=== PATIENT | female | born 1965 | race Caucasian/White ===

== ENCOUNTER 2017-08-31 11:44 | Emergency (ER) | payer BC, SELFPAY ==
[2017-08-31 11:45] VITALS: BP 195/111; PULSE 86; RESP 16; TEMP 36.8; O2SAT 99; BMI 25.1
[2017-08-31 11:47] VITALS: BMI 25.1
[2017-08-31 12:02] LABS: Basophils % 0.5 % (0.1-2.0); Eosinophils # 0.2 K/mm3 (0.0-0.4); Eosinophils % 2.2 % (0.1-12.0); Hematocrit 48.8 % (37.0-47.0); Hemoglobin 16.4 g/dL (12.2-16.2); Lymphocytes # 1.8 K/mm3 (0.7-4.5); Lymphocytes % 24.3 K/mm3 (10-50); Mean Corpuscular HGB Conc 33.6 g/dL (31.8-35.4); Mean Corpuscular Hemoglobin 34.1 pg (27.0-31.2); Mean Corpuscular Volume 101.5 fl (81-99); Mean Platelet Volume 7.8 fl (7.4-10.4); Monocytes # 0.4 K/mm3 (0.1-1.0); Monocytes % 5.8 % (1.7-9.3); Neutrophils # 4.9 K/mm3 (1.8-7.8); Neutrophils % 67.3 % (37.0-80.0); Platelet Count 238 K/mm3 (142-424); Red Blood Count 4.81 M/mm3 (4.20-5.40); White Blood Count 7.3 K/mm3 (4.8-10.8)
--- NOTE | 2017-08-31 12:07 | HMH.EDGENADL ---
ED Disposition Clinical Impression: Hypertension Qualifiers: Hypertension type: essential hypertension Qualified Code(s): I10 - Essential (primary) hypertension Disposition: Home, Self-Care Condition on Discharge: Good Instructions: DI for Anxiety -- Adult, High Blood Pressure Additional Instructions: Increase metoprolol to 25 mg twice a day. Call your primary care provider today to schedule follow-up appointment for next week to have blood pressure rechecked. Also have further evaluation for abnormal EKG. Referrals: Em Laureano [Primary Care Provider] - Forms: Work/School Release - Critical Care Critical Care Time: No Attestation: On , the high probability of a clinically significant, sudden or life threatening deterioration of the following system(s) required my full and direct attention, intervention and personal management. The time I documented below is in addition to time spent performing reported procedures but includes the following listed in this critical care notation. Medical Decision Making Vital Signs: 08/31/17 11:45 08/31/17 12:35 Temperature 98.2 F Temperature Source Oral Pulse Rate [Right Brachial] 86 Respiratory Rate 16 Blood Pressure 173/100 Blood Pressure [Right Arm] 195/111 Blood Pressure Mean [Right Arm] 139 Blood Pressure Source [Right Arm] Automatic Cuff Blood Pressure Position [Right Arm] Sitting 02 Sat by Pulse Oximetry 99 Oxygen Delivery Method Room Air - Lab Data Lab Results 08/31/17 11:51: WBC 7.3, RBC 4.81, Hgb 16.4 H, Hct 48.8 H, MCV 101.5 H, MCH 34.1 H, MCHC 33.6, RDW 13.0, Plt Count 238, MPV 7.8, Neut % (Auto) 67.3, Lymph % (Auto) 24.3, [place] % (Auto) 5.8, Eos % (Auto) 2.2, Baso % (Auto) 0.5, Neut # (Auto) 4.9, Lymph # (Auto) 1.8, [place] # (Auto) 0.4, Eos # (Auto) 0.2, Baso # (Auto) 0.0 08/31/17 11:51: Sodium 139, Potassium 4.0, Chloride 100, Carbon Dioxide 27, Anion Gap 16.0 H, BUN 14, Creatinine 0.85, Estimated Creat Clear 79, Estimated GFR 70, Est GFR ( Amer) 85, Glucose 100, Calcium 9.7, Total Bilirubin 0.7, AST 24, ALT 41, Alkaline Phosphatase 66, Total Protein 8.4 H, Albumin 4.7, Globulin 3.7 H, Albumin/Globulin Ratio 1.3 08/31/17 11:51: Troponin I < 0.02 Result diagrams: 08/31/17 11:51 08/31/17 11:51 Orders (Tests/Meds): ED MEDICATIONS Discontinued Medications Generic Name Dose Route Start Last Admin Trade Name Car PRN Reason Stop Dose Admin Labetalol HCl 10 mg 08/31/17 12:22 08/31/17 12:35 Labetalol 5mg/Ml 20ml Mdv IV 08/31/17 12:23 10 mg ONCE ONE Administration - ECG Data Tracing #1 EKG interpreted by Don Chacko MD: Rhythm: sinus Rate: 86 [place]: normal Ectopy: none Conduction: normal ST Segment Changes: Nonspecific T Wave Changes: Inversion in lead III Q Waves: none No evidence of acute ischemia or injury No prior EKGs available for comparison - González Inquiry Pt receiving controlled substance: No Medical Decision Making Narrative: Blood pressure decreased to 60s over 90s. Advised patient that she should follow-up with her primary care provider for hypertension and abnormal EKG. She has no old EKGs for comparison and is not currently having cardiac symptoms. Has a normal troponin. I feel she can have an evaluation as an outpatient. General Adult HPI - General Chief complaint: Anxiety Stated complaint: HYPERTENSION AND ANXIETY Mode of Arrival: EMS Limitations: No Limitations Description of Symptoms (Recalled from ER Triage Doc. by RN): SENT HERE PER [facility] FROM [facility] FOR HYPERTENSION AND ANXIETY. WAS SEEN IN CLINIC FOR BLOOD PRESSURE CHECK AND EAR PAIN - History of Present Illness HPI narrative: Patient is brought in by ambulance from her primary care provider's office for elevated blood pressure. She has been on blood pressure medication, 25 mg of metoprolol daily, for a couple of months. She was seeing her primary care provider today for plu
[2017-08-31 12:16] LABS: Alanine Aminotransferase 41 U/L (12-78); Albumin Level 4.7 gm/dL (3.4-5.0); Albumin/Globulin Ratio 1.3 (1.1-1.8); Alkaline Phosphatase 66 U/L (46-116); Aspartate Amino Transferase 24 U/L (15-37); Bilirubin,Total 0.7 mg/dL (0.2-1.0); Blood Urea Nitrogen 14 mg/dL (7-18); Calcium 9.7 mg/dL (8.5-10.1); Carbon Dioxide 27 mmol/L (21.0-32.0); Chloride 100 mmol/L (98-107); Creatinine Clearance Estimated 79 mL/min (0-300); Creatinine,Serum 0.85 mg/dL (0.55-1.02); Estimated Glomerular Filt Rate 70 ml/min (>60); GFR (African American) 85 ML/MIN (>60); Globulin 3.7 gm/dl (1.3-3.2); Glucose 100 mg/dL (74-106); Sodium 139 mmol/L (136-145); Total Protein,Serum 8.4 gm/dL (6.4-8.2)
[2017-08-31 12:35] VITALS: BP 173/100
[2017-08-31 12:52] LABS: Troponin I < 0.02 ng/ml (0.00-0.06)
[2017-08-31 13:18] VITALS: BP 149/100; PULSE 85; RESP 18; TEMP 36.7
== END 2017-08-31 13:18 | disposition home or self-care (01) ==
PROVIDERS: Emergency Provider Emergency Medicine; PCP Physician Assistant
DX: I10 Essential (primary) hypertension (principal); F41.9 Anxiety disorder, unspecified
CPT/HCPCS: 80053; 84484; 85025; 93005; 93041; 99282

== ENCOUNTER → 2021-05-11 08:01 | Outpatient (CLI) | payer BC, SELFPAY ==
[2021-05-11 08:22] LABS: Basophils # 0.1 K/mm3 (0-0.2); Basophils % 0.9 % (0.1-2.0); Eosinophils # 0.1 K/mm3 (0.0-0.4); Eosinophils % 1.1 % (0.1-12.0); Hematocrit 43.1 % (37.0-47.0); Hemoglobin 13.6 g/dL (12.2-16.2); Lymphocytes # 1.8 K/mm3 (0.7-4.5); Lymphocytes % 25.5 % (10-50); Mean Corpuscular HGB Conc 31.6 g/dL (31.8-35.4); Mean Corpuscular Hemoglobin 35.4 pg (27.0-31.2); Mean Corpuscular Volume 112.1 fl (81-99); Monocytes # 0.4 K/mm3 (0.1-1.0); Monocytes % 5.7 % (1.7-9.3); Neutrophils # 4.6 K/mm3 (1.8-7.8); Neutrophils % 66.7 % (37.0-80.0); Platelet Count 338 K/mm3 (142-424); Red Blood Count 3.84 M/mm3 (4.20-5.40); Red Cell Distribution Width 13.1 % (11.5-17.5); White Blood Count 6.9 K/mm3 (4.8-10.8)
[2021-05-11 10:12] LABS: Alanine Aminotransferase 22 U/L (12-78); Albumin Level 4.5 g/dl (3.5-5.0); Albumin/Globulin Ratio 1.5 (1.1-1.8); Alkaline Phosphatase 73 U/L (38-126); Anion Gap 11.7 mEq/L (5-15); Aspartate Amino Transferase 38 U/L (14-36); Bilirubin,Total 0.7 mg/dl (0.2-1.3); Blood Urea Nitrogen 15 mg/dl (7-17); Calcium 9.9 mg/dl (8.4-10.2); Carbon Dioxide 26 mmol/L (22.0-30.0); Chloride 106 mmol/L (98-107); Chol/HDL Ratio 3.4 (1-3.5); Cholesterol 191 mg/dl (140-200); Estimated Glomerular Filt Rate 87 ml/min (>60); GFR (African American) 105 ML/MIN (>60); Glucose 88 mg/dl (74-100); HDL Cholesterol 56 mg/dl (40-60); Potassium 4.7 mmoL/L (3.5-5.1); Sodium 139 mmol/L (136-145); Total Protein,Serum 7.5 g/dl (6.3-8.2); Triglycerides 117 mg/dl (30-150); VLDL Cholesterol 23 mg/dL (0-40)
[2021-05-11 10:33] LABS: Direct LDL Cholesterol 109.67 mg/dL (100-129)
[2021-05-11 10:46] LABS: Thyroid Stimulating Hormone 2.19 uIU/mL (0.465-4.68)
[2021-05-11 11:06] LABS: Vitamin B12 388 pg/mL (239-931)
== END ==
PROVIDERS: Visit Provider Internal Medicine Adolescent Medicine
DX: F41.9 Anxiety disorder, unspecified (principal); E78.2 Mixed hyperlipidemia; I10 Essential (primary) hypertension
CPT/HCPCS: 80053; 80061; 82607; 84443; 85025

== ENCOUNTER 2023-11-14 11:00 | Outpatient (RCR) | payer OTHER, SELFPAY | END 2023-11-14 12:00 | disposition home or self-care (01) | LOC: PT 11:00 | PROVIDERS: Visit Provider Nurse Practitioner Family | DX: M79.605 Pain in left leg (principal) | CPT/HCPCS: 97110; 97163; 97164; 97530; 97535 ==